=== PATIENT | female | born 1970 | race Caucasian/White ===

== ENCOUNTER 2025-01-10 09:44 | Inpatient (IN) | payer OTHER ==
[~2025-01-10] VITALS: Ht 180.3 cm; Wt 106.8 kg
[2025-01-10] MEDS ORDERED: ESTR-95 PO (10:25)
[2025-01-10 10:35] LABS: BASOPHILS % (AUTO) 0.5 % (0.0-2.0); EOSINOPHILS % (AUTO) 0.7 % (1.0-6.0); HEMATOCRIT 38.7 % (36-46); HEMOGLOBIN 12.8 g/dL (12.0-16.0); LYMPHOCYTES # (AUTO) 2.3 K/uL (1.0-4.8); LYMPHOCYTES % (AUTO) 18.6 % (22.0-44.0); MEAN CORPUSCULAR VOLUME 79 fL (80-100); MONOCYTES # (AUTO) 0.5 K/uL (0.1-1.0); MONOCYTES % (AUTO) 3.7 % (2.0-9.0); NEUTROPHILS # (AUTO) 9.5 K/uL (1.8-7.7); NEUTROPHILS % (AUTO) 76.5 % (40.0-70.0); PLATELET COUNT (AUTO) 239 K/uL (150-450); RED BLOOD CELL COUNT(AUTO) 4.91 MIL/uL (4.00-5.20); RED CELL DISTRIBUTION WIDTH 14.2 % (11.5-14.5); WHITE BLOOD COUNT (AUTO) 12.4 K/uL (4.5-11.0)
[2025-01-10 10:43] LABS: ANION GAP 10 mmol/L (8-16); CALCIUM, TOTAL 9.3 mg/dL (8.8-10.5); CARBON DIOXIDE 26 mmol/L (22-29); CHLORIDE 101 mmol/L (98-107); CREATININE 0.75 mg/dL (0.60-1.30); GLOMERULAR FILTR. RATE CALC > 60 mL/min (>60); GLUCOSE,RANDOM 154 mg/dL (70-110); LIPASE 126 U/L (16-77); SODIUM SERUM 137 mmol/L (136-145); UREA NITROGEN, BLOOD 16 mg/dL (7-18)
[2025-01-10 10:49] LABS: ALBUMIN 3.1 g/dL (3.4-5.0); BILIRUBIN,DIRECT 0.1 mg/dL (0.00-0.20); BILIRUBIN,TOTAL 0.3 mg/dL (0.1-1.0); TOTAL PROTEIN, SERUM 6.9 g/dL (6.4-8.2)
[2025-01-10] MEDS: KETOROLAC TROMETHAMINE 30 MG/ML VIAL IVP ONE (10:55)
[2025-01-10] MEDS: ONDANSETRON HCL 4 MG/2 ML VIAL IVP ONE (10:55)
[2025-01-10] MEDS: SODIUM CHLORIDE 0.9% 1,000 ML IV ONE (10:55)
[2025-01-10] MEDS ORDERED: SODIUM CHLORIDE 0.9% 100 ML ONE (11:09)
[2025-01-10] MEDS ORDERED: IOHEXOL 350 MG/ML 100 ML VIAL ONE (11:09)
[2025-01-10 13:15] LABS: APPEARANCE,URINE CLEAR (CLEAR); BILIRUBIN,URINE NEGATIVE (NEGATIVE); COLOR,URINE LIGHT YELLOW (YELLOW); GLUCOSE, URINE (UA) >=1000 mg/dL (NEGATIVE); KETONES,URINE NEGATIVE (NEGATIVE); LEUKOCYTE ESTERASE ,URINE NEGATIVE (NEGATIVE); NITRATE,URINE NEGATIVE (NEGATIVE); OCCULT BLOOD,URINE NEGATIVE (NEGATIVE); PH,URINE 6.5 (5.0-8.0); PROTEIN,URINE NEGATIVE (NEGATIVE); SPECIFIC GRAVITIY, URINE 1.014 (1.003-1.030); UROBILINOGEN,URINE <=1.0 mg/dL (<=1.0)
[2025-01-10 13:20] LABS: BACTERIA,URINE None Seen /HPF (None Seen); RBC,URINE None Seen /HPF (0-2); WBC,URINE None Seen /HPF (0-5)
[2025-01-10 20:55] VITALS: BP 162/89; PULSE 69; RESP 19; TEMP 97.7; O2SAT 98
[2025-01-10] MEDS: MORPHINE SULFATE 2 MG/ML SYRINGE IVP ONE (21:43)
[2025-01-10] MEDS ORDERED: HYDROCODONE/ACETAMINOPHEN 5-325 MG TABLET PO PRN (22:15)
[2025-01-10] MEDS ORDERED: ALBUTEROL SULFATE 2.5 MG/0.5 ML NEB SOLUTION NEB PRN (22:15)
[2025-01-10] MEDS ORDERED: MORPHINE SULFATE 2 MG/ML SYRINGE IVP PRN (22:15)
[2025-01-10] MEDS ORDERED: BISACODYL 10 MG RECTAL RECTAL SUPPOSITORY PR PRN (22:15)
[2025-01-10] MEDS ORDERED: ZOLPIDEM TARTRATE 5 MG TABLET PO PRN (22:15)
[2025-01-10] MEDS ORDERED: MAGNESIUM HYDROXIDE SUSPENSION 30 ML UDCUP PO PRN (22:15)
[2025-01-10] MEDS ORDERED: IPRATROPIUM BROMIDE 0.5 MG/2.5 ML NEB SOLUTION NEB PRN (22:15)
[2025-01-10] MEDS ORDERED: LISI2.5T91 PO (22:43)
[2025-01-10] MEDS ORDERED: MELA1TAB52 PO (22:43)
[2025-01-10] MEDS ORDERED: HYDR50CA7 PO (22:43)
[2025-01-10] MEDS ORDERED: FINA1TAB13 PO (22:43)
[2025-01-10] MEDS ORDERED: ATOR20TA65 PO (22:43)
[2025-01-10] MEDS ORDERED: INSLAN SQ (22:43)
[2025-01-10] MEDS ORDERED: DULA0.75 SQ (22:43)
[2025-01-10] MEDS ORDERED: AMLO2.5T29 PO (22:43)
[2025-01-10] MEDS ORDERED: DOCU240C25 PO (22:43)
[2025-01-10] MEDS ORDERED: LAMO25TB3 PO (22:43)
[2025-01-10] MEDS ORDERED: METF-1211 PO (22:43)
[2025-01-10] MEDS ORDERED: MELATONIN 3 MG TABLET PO PRN (23:00)
[2025-01-10] MEDS ORDERED: DEXTROSE 50%-WATER 25 GM/50 ML SYRINGE IVP PRN (23:00)
[2025-01-10] MEDS ORDERED: INSULIN LISPRO 100 UNITS/ML SQ PRN (23:00)
[2025-01-10] MEDS ORDERED: HydrOXYzine PAMOATE 50 MG CAPSULE PO PRN (23:00)
[2025-01-10] MEDS ORDERED: SODIUM CHLORIDE 0.9% 250 ML IV ONE (23:13)
[2025-01-10] MEDS: LISINOPRIL 5 MG TABLET PO SCH (23:24)
[2025-01-10] MEDS: ATORVASTATIN CALCIUM 20 MG TABLET PO SCH (23:24)
[2025-01-10] MEDS: CefTRIAXone 1 GM/DEXTROSE 50 ML IV SCH (23:25)
[2025-01-10] MEDS: HEPARIN SODIUM,PORCINE 5,000 UNITS/ML VIAL SQ SCH (23:26)
[2025-01-10] MEDS: ACETAMINOPHEN 325 MG TABLET PO PRN (23:32)
[2025-01-11 00:16] LABS: GLUCOMETER DEV NAME(LOC) 6N.2B; GLUCOSE,POINT OF CARE 105 MG/DL (70-110)
[2025-01-11 06:05] VITALS: BP 153/77; PULSE 74; RESP 19; TEMP 97.9; O2SAT 96
[2025-01-11 07:40] VITALS: BP 156/77; PULSE 76; RESP 18; TEMP 97.7; O2SAT 98
[2025-01-11 07:51] LABS: GLUCOMETER DEV NAME(LOC) 6S.1D; GLUCOSE,POINT OF CARE 88 MG/DL (70-110)
[2025-01-11] MEDS: PANTOPRAZOLE SODIUM 40 MG DR TABLET PO SCH (08:35)
[2025-01-11] MEDS: AmLODIPine BESYLATE 5 MG TABLET PO SCH (08:35)
[2025-01-11] MEDS: FINASTERIDE 5 MG TABLET PO SCH (08:35)
[2025-01-11] MEDS: ESTRADIOL 1 MG TABLET PO SCH (08:36)
[2025-01-11] MEDS: INSULIN GLARGINE,HUM.REC.ANLOG 100 UNITS/ML SQ SCH (08:37)
[2025-01-11] MEDS: ONDANSETRON HCL 4 MG/2 ML VIAL IVP PRN (09:04)
[2025-01-11 12:06] LABS: BASOPHILS % (AUTO) 0.2 % (0.0-2.0); HEMATOCRIT 37.1 % (36-46); HEMOGLOBIN 12.1 g/dL (12.0-16.0); LYMPHOCYTES # (AUTO) 2.4 K/uL (1.0-4.8); MEAN CORPUSCULAR HEMOGLOBIN 26.1 pg (26.0-34.0); MEAN CORPUSCULAR HGB CONC 32.7 G/dL (31.0-37.0); MEAN CORPUSCULAR VOLUME 80 fL (80-100); MONOCYTES # (AUTO) 0.4 K/uL (0.1-1.0); MONOCYTES % (AUTO) 4.5 % (2.0-9.0); NEUTROPHILS # (AUTO) 5.3 K/uL (1.8-7.7); NEUTROPHILS % (AUTO) 64.3 % (40.0-70.0); PLATELET COUNT (AUTO) 214 K/uL (150-450); RED BLOOD CELL COUNT(AUTO) 4.64 MIL/uL (4.00-5.20); RED CELL DISTRIBUTION WIDTH 14.3 % (11.5-14.5); WHITE BLOOD COUNT (AUTO) 8.2 K/uL (4.5-11.0)
[2025-01-11 12:16] LABS: ANION GAP 6 mmol/L (8-16); CALCIUM, TOTAL 8.7 mg/dL (8.8-10.5); CARBON DIOXIDE 27 mmol/L (22-29); CHLORIDE 104 mmol/L (98-107); CREATININE 0.79 mg/dL (0.60-1.30); GLOMERULAR FILTR. RATE CALC > 60 mL/min (>60); GLUCOSE,RANDOM 91 mg/dL (70-110); POTASSIUM 3.8 mmol/L (3.5-5.1); SODIUM SERUM 137 mmol/L (136-145); UREA NITROGEN, BLOOD 12 mg/dL (7-18)
[2025-01-11 12:20] LABS: ALANINE AMINOTRANSFERASE 21 U/L (12-78); ALBUMIN 2.8 g/dL (3.4-5.0); ALKALINE PHOSPHATASE 49 U/L (46-116); ASPARTATE AMINOTRANSFERASE 13 U/L (15-37); BILIRUBIN,TOTAL 0.3 mg/dL (0.1-1.0); TOTAL PROTEIN, SERUM 6.3 g/dL (6.4-8.2)
[2025-01-11 16:55] LABS: GLUCOMETER DEV NAME(LOC) 6S.2; GLUCOSE,POINT OF CARE 89 MG/DL (70-110)
[2025-01-11 16:55] LABS: GLUCOMETER DEV NAME(LOC) 6N.2B; GLUCOSE,POINT OF CARE 101 MG/DL (70-110)
[2025-01-11] MEDS ORDERED: LamoTRIgine 100 MG TABLET PO SCH (21:00)
[2025-01-17] MEDS ORDERED: [UNRECOGNIZED DRUG - OTHER] SQ SCH (09:00)
== END 2025-01-11 18:12 | disposition left against medical advice (07) | DRG 392 ==
LOC: EMS 09:57 → EDH 15:38 → 6S 18:00
PROVIDERS: ADMIT Hospitalist; ATTEND Hospitalist
DX: R10.31 Right lower quadrant pain (principal); R91.1 Solitary pulmonary nodule; E11.9 Type 2 diabetes mellitus without complications; K57.30 Diverticulosis of large intestine without perforation or abscess without bleeding; Z53.21 Procedure and treatment not carried out due to patient leaving prior to being seen by health care provider; I10 Essential (primary) hypertension; F64.0 Transsexualism; F32.A Depression, unspecified; E66.9 Obesity, unspecified; F41.9 Anxiety disorder, unspecified; Z90.49 Acquired absence of other specified parts of digestive tract; Z79.84 Long term (current) use of oral hypoglycemic drugs; Z79.899 Other long term (current) drug therapy; Z79.4 Long term (current) use of insulin; Z87.891 Personal history of nicotine dependence; Z90.710 Acquired absence of both cervix and uterus; Z68.32 Body mass index [BMI] 32.0-32.9, adult
CPT/HCPCS: 71250; 74177; 80048; 80053; 80076; 81001; 82962; 83690; 85025; 93005; 99285; J0696; J1644; J1815; J1885; J2270; J2405; J7030; J7050

== ENCOUNTER 2025-06-19 14:09 | Inpatient (IN) | payer OTHER ==
[~2025-06-19] VITALS: Ht 180.3 cm; Wt 101.0 kg
[~2025-06-19 14:09] MED LIST: AMLO2.5T29 PO; ATOR20TA65 PO; DOCU240C25 PO; DULA0.75 SQ; ESTR-95 PO; FINA1TAB13 PO; HYDR50CA7 PO; INSLAN SQ; LAMO25TB3 PO; LISI2.5T91 PO; MELA1TAB52 PO; METF-1211 PO
[2025-06-19 15:16] LABS: PLATELET COUNT (AUTO) 275 K/uL (150-450); RED BLOOD CELL COUNT(AUTO) 4.53 MIL/uL (4.00-5.20); RED CELL DISTRIBUTION WIDTH 13.6 % (11.5-14.5); WHITE BLOOD COUNT (AUTO) 9.9 K/uL (4.5-11.0)
[2025-06-19 15:25] LABS: CALCIUM, TOTAL 9.0 mg/dL (8.8-10.5); CREATININE 2.15 mg/dL (0.60-1.30); GLOMERULAR FILTR. RATE CALC 24 mL/min (>60); GLUCOSE,RANDOM 87 mg/dL (70-110); SODIUM SERUM 135 mmol/L (136-145); UREA NITROGEN, BLOOD 34 mg/dL (7-18)
[2025-06-19 15:29] LABS: ASPARTATE AMINOTRANSFERASE 16 U/L (15-37); TOTAL PROTEIN, SERUM 6.9 g/dL (6.4-8.2)
[2025-06-19 15:34] LABS: TROPONIN I-HIGH SENSITIVITY 8 ng/L (<51)
[2025-06-19] MEDS ORDERED: ZOLPIDEM TARTRATE 5 MG TABLET PO PRN (19:45)
[2025-06-19] MEDS ORDERED: BISACODYL 10 MG RECTAL RECTAL SUPPOSITORY PR PRN (19:45)
[2025-06-19] MEDS ORDERED: MAGNESIUM HYDROXIDE SUSPENSION 30 ML UDCUP PO PRN (19:45)
[2025-06-19] MEDS ORDERED: ONDANSETRON HCL 4 MG/2 ML VIAL IVP PRN (19:45)
[2025-06-19] MEDS ORDERED: DEXTROSE 50%-WATER 25 GM/50 ML SYRINGE IVP PRN (20:00)
[2025-06-19] MEDS: MORPHINE SULFATE 2 MG/ML SYRINGE IVP PRN (20:12)
[2025-06-19] MEDS: SODIUM CHLORIDE 0.9% 1,000 ML IV ONE (20:12)
[2025-06-19] MEDS: DOCUSATE SODIUM 100 MG CAPSULE PO SCH (20:13)
[2025-06-19 23:55] VITALS: BP 133/68; PULSE 65; RESP 18; TEMP 97.7; O2SAT 98
[2025-06-20] MEDS: HEPARIN SODIUM,PORCINE 5,000 UNITS/ML VIAL SQ SCH
[2025-06-20] MEDS: DEXTROSE 5%-0.45% SODIUM CHL 1,000 ML IV ONE (00:18)
[2025-06-20 04:04] VITALS: BP 115/60; PULSE 64; RESP 18; TEMP 98.4; O2SAT 97
[2025-06-20 05:55] LABS: GLUCOMETER DEV NAME(LOC) 6S.2; GLUCOSE,POINT OF CARE 84 MG/DL (70-110)
[2025-06-20 06:05] LABS: GLUCOMETER DEV NAME(LOC) 6N.2C; GLUCOSE,POINT OF CARE 89 MG/DL (70-110)
[2025-06-20 06:35] LABS: APPEARANCE,URINE CLEAR (CLEAR); GLUCOSE, URINE (UA) NEGATIVE (NEGATIVE); LEUKOCYTE ESTERASE ,URINE NEGATIVE (NEGATIVE); NITRATE,URINE NEGATIVE (NEGATIVE); OCCULT BLOOD,URINE NEGATIVE (NEGATIVE); PH,URINE DRUG SCREEN 5.0 (5.0-8.0); SPECIFIC GRAVITIY, URINE 1.011 (1.003-1.030)
[2025-06-20 06:43] LABS: ALCOHOL, URINE DRUG SCREEN NEGATIVE (NEGATIVE); AMPHET/METH SCREEN,URINE POSITIVE (NEGATIVE); BARBITURATE SCREEN, URINE NEGATIVE (NEGATIVE); CANNABINOID SCREEN,URINE NEGATIVE (NEGATIVE); COCAINE SCREEN,URINE POSITIVE (NEGATIVE); METHADONE SCREEN, URINE NEGATIVE (NEGATIVE)
[2025-06-20 08:28] VITALS: BP 126/57; PULSE 61; RESP 18; TEMP 97.7; O2SAT 100
[2025-06-20] MEDS: PANTOPRAZOLE SODIUM 40 MG DR TABLET PO SCH (08:54)
[2025-06-20] MEDS: SODIUM CHLORIDE 0.9% 1,000 ML IV ONE (13:22)
[2025-06-20] MEDS: ACETAMINOPHEN 325 MG TABLET PO PRN (16:50)
[2025-06-20 19:05] LABS: GLUCOMETER DEV NAME(LOC) 6N.2C; GLUCOSE,POINT OF CARE 99 MG/DL (70-110)
[2025-06-20 19:05] LABS: GLUCOMETER DEV NAME(LOC) 6N.2C; GLUCOSE,POINT OF CARE 85 MG/DL (70-110)
[2025-06-20 19:47] VITALS: BP 123/51; PULSE 59; RESP 18; TEMP 97.5; O2SAT 98
[2025-06-20 20:55] LABS: GLUCOMETER DEV NAME(LOC) 6S.2; GLUCOSE,POINT OF CARE 84 MG/DL (70-110)
[2025-06-21 04:53] VITALS: BP 118/53; PULSE 63; RESP 18; TEMP 97.5; O2SAT 98
[2025-06-21 05:46] LABS: GLUCOMETER DEV NAME(LOC) 6S.2; GLUCOSE,POINT OF CARE 86 MG/DL (70-110)
[2025-06-21 06:16] LABS: CALCIUM, TOTAL 8.5 mg/dL (8.8-10.5); CREATININE 0.87 mg/dL (0.60-1.30); GLOMERULAR FILTR. RATE CALC > 60 mL/min (>60); GLUCOSE,RANDOM 84 mg/dL (70-110); SODIUM SERUM 136 mmol/L (136-145); UREA NITROGEN, BLOOD 14 mg/dL (7-18)
[2025-06-21 08:41] VITALS: BP 120/69; PULSE 64; RESP 18; TEMP 97.9; O2SAT 100
[2025-06-21 12:11] LABS: GLUCOMETER DEV NAME(LOC) 6S.2; GLUCOSE,POINT OF CARE 100 MG/DL (70-110)
[2025-06-21 18:50] LABS: GLUCOMETER DEV NAME(LOC) 6S.2; GLUCOSE,POINT OF CARE 100 MG/DL (70-110)
[2025-06-21 20:10] VITALS: BP 127/71; PULSE 63; RESP 16; TEMP 97.3; O2SAT 96
[2025-06-21 22:41] LABS: GLUCOMETER DEV NAME(LOC) 6S.2; GLUCOSE,POINT OF CARE 104 MG/DL (70-110)
[2025-06-22 06:28] LABS: CALCIUM, TOTAL 8.8 mg/dL (8.8-10.5); CREATININE 0.97 mg/dL (0.60-1.30); GLOMERULAR FILTR. RATE CALC 60.0 mL/min (>60); GLUCOSE,RANDOM 107.0 mg/dL (70-110); SODIUM SERUM 135.0 mmol/L (136-145); UREA NITROGEN, BLOOD 12.0 mg/dL (7-18)
[2025-06-22 08:36] VITALS: BP 151/85; PULSE 62; RESP 18; TEMP 97.6; O2SAT 99
[2025-06-22 16:26] LABS: GLUCOMETER DEV NAME(LOC) 6N.2C; GLUCOSE,POINT OF CARE 124 MG/DL (70-110)
[2025-06-22] MEDS: INSULIN LISPRO 100 UNITS/ML SQ PRN (17:49)
[2025-06-22 19:41] LABS: GLUCOMETER DEV NAME(LOC) 6N.2C; GLUCOSE,POINT OF CARE 147 MG/DL (70-110)
[2025-06-22 19:56] VITALS: BP 127/60; PULSE 75; RESP 18; TEMP 97.6; O2SAT 97
[2025-06-23 04:52] VITALS: BP 122/71; PULSE 61; RESP 18; TEMP 97.9; O2SAT 97
[2025-06-23 06:05] LABS: GLUCOMETER DEV NAME(LOC) 6S.2; GLUCOSE,POINT OF CARE 142 MG/DL (70-110)
[2025-06-23 06:06] LABS: GLUCOMETER DEV NAME(LOC) 6S.2; GLUCOSE,POINT OF CARE 141 MG/DL (70-110)
[2025-06-23 08:08] LABS: CALCIUM, TOTAL 8.9 mg/dL (8.8-10.5); CREATININE 1.23 mg/dL (0.60-1.30); GLOMERULAR FILTR. RATE CALC 45.0 mL/min (>60); GLUCOSE,RANDOM 219.0 mg/dL (70-110); SODIUM SERUM 135.0 mmol/L (136-145); UREA NITROGEN, BLOOD 16.0 mg/dL (7-18)
[2025-06-23 09:22] VITALS: BP 119/55; PULSE 69; RESP 18; TEMP 98.2; O2SAT 100
[2025-06-23 12:10] LABS: GLUCOMETER DEV NAME(LOC) 6S.2; GLUCOSE,POINT OF CARE 157 MG/DL (70-110)
[2025-06-23] MEDS: HYDROCODONE/ACETAMINOPHEN 5-325 MG TABLET PO PRN (13:47)
[2025-06-23 18:50] LABS: GLUCOMETER DEV NAME(LOC) 6S.2; GLUCOSE,POINT OF CARE 133 MG/DL (70-110)
[2025-06-23 20:31] VITALS: BP 115/60; PULSE 60; RESP 18; TEMP 98.4; O2SAT 98
[2025-06-24 01:06] LABS: GLUCOMETER DEV NAME(LOC) 6S.2; GLUCOSE,POINT OF CARE 150 MG/DL (70-110)
[2025-06-24 05:14] VITALS: BP 126/73; PULSE 63; RESP 18; TEMP 97.5; O2SAT 99
[2025-06-24 07:41] LABS: GLUCOMETER DEV NAME(LOC) 6N.2C; GLUCOSE,POINT OF CARE 126 MG/DL (70-110)
[2025-06-24 09:57] VITALS: BP 115/58; PULSE 74; RESP 17; TEMP 98.1; O2SAT 96
[2025-06-24 16:25] LABS: GLUCOMETER DEV NAME(LOC) 6S.2; GLUCOSE,POINT OF CARE 146 MG/DL (70-110)
[2025-06-24 19:36] LABS: GLUCOMETER DEV NAME(LOC) 6S.2; GLUCOSE,POINT OF CARE 128 MG/DL (70-110)
[2025-06-24 19:57] VITALS: BP 118/57; PULSE 65; RESP 18; TEMP 97.9; O2SAT 95
[2025-06-24 23:56] LABS: GLUCOMETER DEV NAME(LOC) 6N.2C; GLUCOSE,POINT OF CARE 128 MG/DL (70-110)
[2025-06-25 04:56] VITALS: BP 121/74; PULSE 60; RESP 18; TEMP 97.5; O2SAT 96
[2025-06-25 05:50] LABS: GLUCOMETER DEV NAME(LOC) 6N.2C; GLUCOSE,POINT OF CARE 138 MG/DL (70-110)
[2025-06-25 10:36] VITALS: BP 112/59; PULSE 56; RESP 18; TEMP 97.7; O2SAT 97
[2025-06-25 12:00] LABS: GLUCOMETER DEV NAME(LOC) 6S.2; GLUCOSE,POINT OF CARE 131 MG/DL (70-110)
[2025-06-25 18:05] LABS: GLUCOMETER DEV NAME(LOC) 6N.2C; GLUCOSE,POINT OF CARE 125 MG/DL (70-110)
[2025-06-25 19:30] VITALS: BP 109/60; PULSE 60; RESP 18; TEMP 98.1; O2SAT 98
[2025-06-25 21:40] LABS: GLUCOMETER DEV NAME(LOC) 6N.2C; GLUCOSE,POINT OF CARE 149 MG/DL (70-110)
[2025-06-26 04:23] VITALS: BP 108/74; PULSE 68; RESP 18; TEMP 97.5; O2SAT 98
[2025-06-26 05:46] LABS: GLUCOMETER DEV NAME(LOC) 6N.2C; GLUCOSE,POINT OF CARE 146 MG/DL (70-110)
[2025-06-26 08:00] VITALS: BP 111/77; PULSE 67; RESP 20; TEMP 97.3; O2SAT 97
[2025-06-26 12:01] LABS: GLUCOMETER DEV NAME(LOC) 6N.2C; GLUCOSE,POINT OF CARE 152 MG/DL (70-110)
[2025-06-26] MEDS ORDERED: AMLO-257 PO (12:42)
[2025-06-26] MEDS ORDERED: DOCU-385 PO (12:43)
[2025-06-26] MEDS ORDERED: FLUO-418 PO (12:43)
[2025-06-26] MEDS ORDERED: PANT-31 PO (12:43)
[2025-06-26] MEDS ORDERED: ACET-2247 PO (12:44)
[2025-06-26] MEDS ORDERED: MAGN-169 PO (12:45)
[2025-06-26] MEDS ORDERED: INSU100V SQ (12:45)
== END 2025-06-26 15:45 | DRG 394 ==
LOC: EMS 14:09 → EDH 19:43 → 6S 23:40
PROVIDERS: ADMIT Internal Medicine; ATTEND Internal Medicine
DX: T18.2XXA Foreign body in stomach, initial encounter (principal); F33.2 Major depressive disorder, recurrent severe without psychotic features; N17.9 Acute kidney failure, unspecified; R45.851 Suicidal ideations; I10 Essential (primary) hypertension; F14.10 Cocaine abuse, uncomplicated; F15.10 Other stimulant abuse, uncomplicated; E11.9 Type 2 diabetes mellitus without complications; E78.5 Hyperlipidemia, unspecified; G47.00 Insomnia, unspecified; F60.3 Borderline personality disorder; W44.A9XA Other batteries entering into or through a natural orifice, initial encounter; Y93.89 Activity, other specified; Y92.148 Other place in prison as the place of occurrence of the external cause; Y99.8 Other external cause status; Z79.899 Other long term (current) drug therapy; Z90.49 Acquired absence of other specified parts of digestive tract
CPT/HCPCS: 71045; 74018; 74019; 80048; 80076; 80307; 81001; 82962; 84484; 85025; 93005; 99285; G0480; G0481; J1644; J2270; J7030; 36415-L1; 36415-TC